=== PATIENT | female | born 1975 | race Caucasian/White ===

== ENCOUNTER 2016-09-16 20:49 | Emergency (ER) | payer OTHER ==
--- NOTE | ~2016-09-16 | CT4 ---
[facility] A Service of [facility] & [facility] RADIOLOGY TEXT RESULTS PATIENT: RENEE HAYES LOCATION: SED : 75 UNIT #: [id number] AGE: [address]: JAZZ STINSON SEX: F ORDER DR: [id number] [address] [address] [id number] E MR#: [id number] Acc #: [id number] NAME: RENEE HAYES. : 1975 SEX: F STUDY DATE/TIME: 09/16/2016 21:36 UNIT: SED ROOM: STUDY DESCRIPTION: CT Abd and Pelv Wo Cont Attending Physician: Jazz Stinson Aprn Ordering Physician: Physician Non-Staff Primary Care Physician: Daiana Tobias M.D. MEDICAL IMAGING REPORT This report is preliminary unless electronic signature is present. EXAM CT abdomen and pelvis, 09/16/2016. HISTORY Pain, left mid back, worse with movement, onset [address] abdomen and pelvis performed without administration of oral or intravascular contrast. Study limited in the absence of both oral and intravascular contrast. This CT exam was performed with one or more of the following radiation dose reduction techniques: automatic exposure control, adjustment of mA and/or kV according to patient size, and iterative reconstruction. COMPARISON 04/19/2015. FINDINGS Linear scarring or atelectasis at the left lung base. Inferior heart and pericardium unremarkable. No suspicious focal hepatic parenchymal abnormality. The liver is normal in size measuring about 16.2 cm in craniocaudal extent, previously 19.4 cm. Gallbladder, spleen, pancreas, adrenal glands unremarkable. Bilateral punctate intrarenal nonobstructing calculi more numerous on right than left. No right-sided hydronephrosis, hydroureter or ureteral calculus. On the left, there is minimal pyelocaliectasis. At the left pyeloureteral junction, there is a 2-3 mm calculus. No left perinephric or periureteral inflammatory change or fluid collection. No other left ureteral calculi. CT PELVIS: Urinary bladder unremarkable. Uterus unremarkable. 1.7 cm left ovarian cyst likely the dominant follicle for this menstrual cycle. No free fluid in pelvis. No pelvic or retroperitoneal adenopathy. Ikxdn-xd-aocorabk hiatal hernia unchanged. Surgical clips at level of the STS. [facility] A Service of [facility] & [facility] RADIOLOGY TEXT RESULTS PATIENT: RENEE HAYES LOCATION: [facility] : 75 UNIT #: [id number] AGE: [address]: JAZZ STINSON SEX: F ORDER DR: proximal stomach, unchanged. Small bowel, appendix, colon unremarkable. Unopacified vascular structures appear of normal caliber. Bony structures unremarkable. IMPRESSION 1. There is a 2-3 mm calculus at the left pyeloureteral junction resulting in mild left pyelocaliectasis. No other left ureteral calculi are seen. No perinephric or proximal periureteral inflammatory change or fluid collection. 2. Punctate nonobstructing intrarenal calculi bilaterally, more numerous on the right than left. 3. Compared to March 2015, there has been resolution of mild hepatic enlargement. Liver now measures 16.2 cm in craniocaudal extent, previously 19.4 cm. 4. Gallbladder, pancreas, appendix unremarkable. 5. 1.7 cm left ovarian cyst likely dominant follicle for this menstrual cycle. 6. No abnormal fluid collections. 7. Evidence of prior surgical intervention proximal stomach. Bvxzr-nm-tagsfxxe hiatal hernia. These findings are stable. See remainder of incidental findings in body of report above. Dictated by... Jaylen Callahan M.D. THIS IS AN ELECTRONICALLY VERIFIED REPORT Jaylen Callahan M.D. at 09/17/2016 2:17 PM Nino TD: 09/17/2016 12:05 JOB #: [id number] MEDICAL IMAGING REPORT Page 1 of 1
[2016-09-16 20:44] LABS: URINE SOURCE CLEAN CATCH
[2016-09-16 20:47] LABS: URINE APPEARANCE HAZY; URINE BILIRUBIN NEG (NEG); URINE BLOOD NEG (NEG); URINE COLOR DK YELLOW; URINE GLUCOSE NEG (NORM); URINE KETONE 1+ (NEG); URINE LEUKOCYTE ESTERASE TRACE (NEG); URINE NITRATE NEG (NEG); URINE PROTEIN 1+ (NEG); URINE SPECIFIC GRAVITY 1.025 (1.003-1.035); URINE UROBILINOGEN 0.2 MG/DL (NORM)
[~2016-09-16 20:49] MED LIST: ADVAIR 100-501 EACH IH; ALBUTEROL17 GM INH; ALLERGY MED; ANTI INFLAM; AUGMENTIN875 MG PO; B12; BACLOFEN10 MG PO; BACTRIM DS TABL1 TA1 PO; BACTRIM DS TABL1 TA2 PO; BACTRIM DS TABL1 TAB PO; BENTYL20 M1 PO; BENZONATATE PO; CALCIUM; CALCIUM + D 6001 TA1 PO; CALCIUM1 TAB.CHEW; CALCIUM500 MG PO; CARAFATE1 G PO; CHOLESTROL MED; CIPRO PO; CITRANATAL B-C1 EAC1 PO; DARVOCET-N 1001 TA1 PO; DARVOCET-N 1001 TA2 PO; DARVOCET-N 1001 TAB PO; DECADRON PO; DEPO-PROVER150 MG/M1; DEPO-PROVER150 MG/ML; DEPO-PROVER150 MG/ML INJ; DEPO-PROVERA INJ; DICLOFENAC PO; DICLOFENAC SODI50 MG PO; EC-NAPROSYN500 MG PO; FLEXERIL PO; FLEXERIL10 M1 PO; FLOMAX0.4 M1 DOB; FLOMAX0.4 M1 PO; FLOMAX0.4 MG PO; HYDROCODON-ACE1 EAC7 PO; IBUPROFEN PO; IRON1 TAB PO; LORTAB 10/500 T1 TAB PO; LORTAB 101 TAB 10/5 PO; LORTAB 5/500 TA1 TA1 PO; NABUMETONE PO; NAPROXEN PO; NEURONTIN PO; NEXIUM PO; NORCO 7.5-3251 EACH PO; NORFLEX100 M1 PO; PERCOCET5/325 PO; PHENERGAN DM1 ML PO; PHENERGAN PO; PHENERGAN SUPP25 M1 PR; PHENERGAN SUPP25 MG PR; PHENERGAN12.5 MG PO; PHENERGAN25 M1 PO; PHENERGAN25 MG PO; PRENATAL COMPLE1 TAB PO; PRILOSEC PO; PROAIR HFA8.5 GM IH; PROMETHAZINE HC25 MG PO; PROVENTIL INH0.5 ML; PYRIDIUM PO; QVAR7.3 GM INH; SIMVASTATIN10 MG PO; SINGULAIR PO; SKELAXIN PO; SYMBICORT INH; TRAMADOL HCL50 M2 PO; TYLOX 5/500 CAP1 CAP PO; ULTRAM PO; VIBRAMYCIN100 M1 PO; VICODIN 5/1 TAB 5/50 PO; VICODIN 5/500 T1 TAB PO; VICODIN ES 7.51 EACH PO; VIT B-12 PO; VIT B12 PO; VOLTAREN50 MG PO; VOLTAREN75 MG PO; ZANAFLEX4 M1 PO; ZANTAC PO; ZITHROMAX PO; ZITHROMAX1 G/PKT PO; ZOCOR5 MG PO; ZOFRAN; ZOFRAN ODT4 MG PO; ZOFRAN PO; ZYRTEC PO; ZYRTEC10 M2 PO; [UNRECOGNIZED DRUG - REMARK]
[2016-09-16 20:53] LABS: MICRO INDICATED? YES
[2016-09-16 21:01] LABS: CULTURE INDICATED? YES; URINE BACTERIA 1+ (NEG); URINE MUCUS PRESENT; URINE SQUAMOUS EPITHELIAL CELL MODERATE /[HPF]
[2016-09-16 23:24] LABS: BASOPHIL# 0.1 X10e3 (0-0.3); BASOPHIL% 0.9 % (0-2.5); EOSINOPHIL# 0.1 X10e3 (0-0.7); EOSINOPHIL% 1.4 % (0.0-7.0); HEMATOCRIT 43.7 % (35.0-45.0); HEMOGLOBIN 14.3 gm/dL (12.0-16.0); LYMPHOCYTE% 38.9 % (17.0-45.0); MEAN CORPUSCULAR HEMOGLOBIN 29.5 PG (28-34); MEAN CORPUSCULAR HGB CONC 32.7 g/dL (30-36); MEAN PLATELET VOLUME 6.7 FL (6.5-11.5); MONOCYTE# 0.7 X10e3 (0-1.0); MONOCYTE% 6.5 % (3.0-12.0); NEUTROPHIL# 5.4 X10e3 (1.5-7.1); NEUTROPHIL% 52.3 % (40-75); PLATELET COUNT 276 X10e3 (140-420); RED BLOOD COUNT 4.85 X10e (3.90-5.30); RED CELL DISTRIBUTION WIDTH 14.1 % (11.0-15.5); WHITE BLOOD COUNT 10.3 X10e3 (4.0-10.5)
[2016-09-16 23:28] LABS: DIFF IND NO
[2016-09-16 23:38] LABS: ALBUMIN SERUM 4.4 g/dL (3.5-5.0); BILIRUBIN,TOTAL 0.6 mg/dL (0.2-2.0); BUN/CREATININE RATIO 15.45; CALCIUM SERUM 9.4 mg/dL (8.4-10.2); CREATININE SERUM 1.1 mg/dL (0.6-1.4); GLOM FILT RATE Estimated 58.2 mL/min (>60); POTASSIUM 3.5 mmol/L (3.5-5.1)
[2016-09-22] MEDS ORDERED: NORCO1 TAB 10/3 DOB (12:29)
[2016-09-22] MEDS ORDERED: ZOFRAN PO (12:29)
[2016-12-29] MEDS ORDERED: PENICILLIN V P500 MG PO (11:38)
[2017-02-19] MEDS ORDERED: REGLAN5 MG PO (08:54)
[2017-02-19] MEDS ORDERED: MONTELUKAST SOD10 MG PO (11:00)
[2017-02-19] MEDS ORDERED: MULTI VITAMIN1 EACH PO (11:00)
[2017-02-19] MEDS ORDERED: HYDROCODON-ACE1 EAC7 PO (11:01)
[2017-02-19] MEDS ORDERED: CALCIUM 600 +1 EAC1 PO (11:53)
[2017-02-19] MEDS ORDERED: ALBUTEROL MININEB NEB (11:54)
[2017-02-19] MEDS ORDERED: ZYRTEC PO (11:54)
[2017-02-19] MEDS ORDERED: FERROUS GLUCON PO (12:30)
[2017-02-19] MEDS ORDERED: NEXIUM PO (12:48)
[2017-02-19] MEDS ORDERED: PROAIR HFA8.5 GM INH (12:49)
[2017-02-19] MEDS ORDERED: SIMVASTATIN40 MG PO (14:19)
[2017-02-19] MEDS ORDERED: GABAPENTIN300 M2 PO (14:20)
[2017-02-19] MEDS ORDERED: CARAFATE1 GM PO (14:20)
== END 2016-09-17 00:27 | disposition home or self-care (01) ==
LOC: SED 20:49
PROVIDERS: Nurse Practitioner Family
DX: N20.1 Calculus of ureter (principal); Z88.5 Allergy status to narcotic agent; Z79.899 Other long term (current) drug therapy
CPT/HCPCS: 36415; 74176; 80053; 81003; 85025; 87086; 96372; 99284; J1885

== ENCOUNTER 2016-09-22 13:04 | Emergency (ER) | payer OTHER ==
--- NOTE | ~2016-09-22 | CR7 ---
[facility] A Service of [facility] & [facility] RADIOLOGY TEXT RESULTS PATIENT: RENEE HAYES LOCATION: SED : 75 UNIT #: [id number] AGE: [address]: Dov Basilio MD SEX: F ORDER DR: [id number] [place] [id number] E MR#: [id number] Acc #: [id number] NAME: RENEE HAYES. : 1975 SEX: F STUDY DATE/TIME: 09/22/2016 12:54 UNIT: SED ROOM: STUDY DESCRIPTION: CR Abdomen Single AP View Attending Physician: Dov Basilio M.D. Ordering Physician: Dov Basilio M.D. Primary Care Physician: Daiana Tobias M.D. MEDICAL IMAGING REPORT This report is preliminary unless electronic signature is present. EXAM Portable abdomen, 09/22/2016 HISTORY Flank pain for 3 days. FINDINGS Moderate amount of stool throughout the colon. No bowel dilatation or displacement. Bowel contents overlie and partly obscure both kidneys. No definite urinary calculi, although urinary stones could be obscured by the overlying bowel contents. Probable opaque bowel content overlying the left kidney. Incidental tiny right pelvic phlebolith. Surgical clips in the medial left upper quadrant. IMPRESSION No acute findings. Moderate amount of stool in nondistended colon. Dictated by... Jeanmarie Bland M.D. THIS IS AN ELECTRONICALLY VERIFIED REPORT Jeanmarie Bland M.D. at 09/23/2016 3:00 PM FORD/adriana TD: 09/23/2016 04:15 JOB #: [id number] MEDICAL IMAGING REPORT Page 1 of 1
[2016-09-22 12:52] LABS: URINE SOURCE CLEAN CATCH
[2016-09-22 12:54] LABS: URINE APPEARANCE SL CLOUDY; URINE BILIRUBIN POS (NEG); URINE BLOOD 3+ (NEG); URINE COLOR YELLOW; URINE GLUCOSE NEG (NORM); URINE KETONE NEG (NEG); URINE LEUKOCYTE ESTERASE NEG (NEG); URINE NITRATE NEG (NEG); URINE PH 6.5 (5-8); URINE PROTEIN TRACE (NEG)
[2016-09-22 12:55] LABS: MICRO INDICATED? YES
[~2016-09-22 13:04] MED LIST changes: +NORCO1 TAB 10/3 DOB
[2016-09-22 13:18] LABS: CULTURE INDICATED? NO; URINE BACTERIA NEG (NEG); URINE WBC 0-2 /[HPF] (0-5)
[2016-12-29] MEDS ORDERED: PENICILLIN V P500 MG PO (11:38)
[2017-02-19] MEDS ORDERED: REGLAN5 MG PO (08:54)
[2017-02-19] MEDS ORDERED: MULTI VITAMIN1 EACH PO (11:00)
[2017-02-19] MEDS ORDERED: MONTELUKAST SOD10 MG PO (11:00)
[2017-02-19] MEDS ORDERED: HYDROCODON-ACE1 EAC7 PO (11:01)
[2017-02-19] MEDS ORDERED: CALCIUM 600 +1 EAC1 PO (11:53)
[2017-02-19] MEDS ORDERED: ZYRTEC PO (11:54)
[2017-02-19] MEDS ORDERED: ALBUTEROL MININEB NEB (11:54)
[2017-02-19] MEDS ORDERED: FERROUS GLUCON PO (12:30)
[2017-02-19] MEDS ORDERED: NEXIUM PO (12:48)
[2017-02-19] MEDS ORDERED: PROAIR HFA8.5 GM INH (12:49)
[2017-02-19] MEDS ORDERED: SIMVASTATIN40 MG PO (14:19)
[2017-02-19] MEDS ORDERED: GABAPENTIN300 M2 PO (14:20)
[2017-02-19] MEDS ORDERED: CARAFATE1 GM PO (14:20)
== END 2016-09-22 14:56 | disposition home or self-care (01) ==
LOC: SED 13:04
PROVIDERS: Emergency Medicine
DX: N20.1 Calculus of ureter (principal); K59.00 Constipation, unspecified; K21.9 Gastro-esophageal reflux disease without esophagitis; J45.909 Unspecified asthma, uncomplicated; Z79.899 Other long term (current) drug therapy; Z88.5 Allergy status to narcotic agent
CPT/HCPCS: 74000; 81003; 96372; 99284; J1170; J2550

== ENCOUNTER → 2016-10-04 | Day surgery (SDC) | payer OTHER ==
[~2016-10-04] MED LIST changes: +ALBUTEROL MININEB NEB; +CALCIUM 600 +1 EAC1 PO; +CARAFATE1 GM PO; +FERROUS GLUCON PO; +GABAPENTIN300 M2 PO; +MONTELUKAST SOD10 MG PO; +MULTI VITAMIN1 EACH PO; +PENICILLIN V P500 MG PO; +PROAIR HFA8.5 GM INH; +REGLAN5 MG PO; +SIMVASTATIN40 MG PO
--- NOTE | ~2016-10-04 | OR ---
Unit #: [id number] #: [id number] Patient: RENEE HAYES [id number] [address] [place], [place] [address] [id number] O MR#: [id number] NAME: RENEE HAYES. ROOM: Date of Procedure: 10/04/2016 Admission Date: 10/04/2016 Surgeon: Eron Becerril M.D. : 1975 Attending Physician: Eron Becerril M.D. Referring Physician: Eron Becerril M.D. Primary Care Physician: Daiana Tobias M.D. OPERATIVE REPORT PREOPERATIVE DIAGNOSES Small left ureteral stone and bilateral flank pain. POSTOPERATIVE DIAGNOSES Normal cystoscopy and retrogrades, no stone or hydronephrosis seen. PROCEDURES PERFORMED 1. Cystourethroscopy. 2. Bilateral retrograde ureteropyelograms. 3. Interpretation of retrogrades. ANESTHESIA General with local supplementation. INDICATIONS FOR PROCEDURE This patient with a prior history of stone disease, also had an incidental benign bladder lesion versus papillary lesion of low malignant potential, removed from the bladder in 12/2014. She presented with a several week history of intermittent left back pain and was noted to have a 2.6 mm stone at the left ureteropelvic junction associated with hydronephrosis. She has perhaps 1 mm parenchymal calcification versus stone in the right kidney. She has complained of continued pain on expectant management and therefore was admitted today for left ureteroscopy, laser lithotripsy, and stent placement. In the holding area, she requested treatment on the right side as her pain has been greater on the right lately. A difficulty in discussing her situation was moderated with counseling from the branch chief and after reviewing her CT scan and thoroughly reviewing my assessment, we agreed to modify the procedure to cystoscopy, bilateral retrogrades, and other indications including any ureteroscopy indicated right or left. DESCRIPTION OF PROCEDURE The patient was given preoperative antibiotics and satisfactory general anesthesia. The patient was repositioned in dorsal lithotomy and the genitalia were prepped and draped. A time-out was performed. She had been given preoperative antibiotics. A 21-Anguillan rigid cystoscope was introduced with a 20 degree lens and video noting a normal urethra and essentially normal bladder. Close examination showed scarring at the left ureteral orifice presumably from the previous lesion. The entire mucosa of the bladder was examined with no suspicious findings. There were no stones or architectural abnormalities. Unit #: [id number] #: [id number] Patient: RENEE HAYES An 8 mm cone tip catheter was placed in the left ureteral orifice and a meticulous multistaged left retrograde performed showing repeatedly a normal single system with minimal hang up at the pelvic vessels, but no dilation, no hydronephrosis, delicate calyces, and no filling defects and prompt emptying. Particular attention was paid to the upper ureter and UPJ area to be sure there was not any occult fragment in that location. A right retrograde was similarly performed also showing delicate single system with no hydronephrosis or stone and prompt complete emptying. Certainty of findings, the bladder was drained. The cystoscope removed and Uro-jet was applied. Dictated by... Aarti Ramirez/barbara TD: 10/05/2016 03:15 JOB #: [id number] CC: Daiana Tobias M.D. OPERATIVE REPORT Page 1 of 1 X Eron Becerril MD X PROCEDURE OPERATIVE NOTE
[2016-10-04 09:26] LABS: BASOPHIL% 0.4 % (0-2.5); EOSINOPHIL# 0.1 X10e3 (0-0.7); EOSINOPHIL% 1.4 % (0.0-7.0); HEMATOCRIT 40.1 % (35.0-45.0); HEMOGLOBIN 13.3 gm/dL (12.0-16.0); LYMPHOCYTE# 2.6 X10e3 (1.0-3.5); LYMPHOCYTE% 32.5 % (17.0-45.0); MEAN CELL VOLUME 89.1 FL (83-96); MEAN CORPUSCULAR HEMOGLOBIN 29.6 PG (28-34); MEAN CORPUSCULAR HGB CONC 33.3 g/dL (30-36); MEAN PLATELET VOLUME 6.8 FL (6.5-11.5); MONOCYTE# 0.5 X10e3 (0-1.0); NEUTROPHIL# 4.8 X10e3 (1.5-7.1); NEUTROPHIL% 59.7 % (40-75); PLATELET COUNT 257 X10e3 (140-420); RED CELL DISTRIBUTION WIDTH 13.8 % (11.0-15.5)
[2016-10-04 09:29] LABS: DIFF IND NO
== END | disposition home or self-care (01) ==
LOC: CSUR 08:28
PROVIDERS: Urology
DX: Z87.442 Personal history of urinary calculi (principal); E78.5 Hyperlipidemia, unspecified; J44.9 Chronic obstructive pulmonary disease, unspecified; K21.9 Gastro-esophageal reflux disease without esophagitis; F41.9 Anxiety disorder, unspecified; Z88.5 Allergy status to narcotic agent; Z79.899 Other long term (current) drug therapy; Z98.3 Post therapeutic collapse of lung status; Z98.890 Other specified postprocedural states
CPT/HCPCS: 84703; 85025; J0330; J0690; J1100; J2250; J2405; J3010

== ENCOUNTER 2016-12-28 16:47 | Emergency (ER) | payer OTHER ==
[~2016-12-28 16:47] MED LIST changes: -ALBUTEROL MININEB NEB; -CALCIUM 600 +1 EAC1 PO; -CARAFATE1 GM PO; -FERROUS GLUCON PO; -GABAPENTIN300 M2 PO; -MONTELUKAST SOD10 MG PO; -MULTI VITAMIN1 EACH PO; -PENICILLIN V P500 MG PO; -PROAIR HFA8.5 GM INH; -REGLAN5 MG PO; -SIMVASTATIN40 MG PO
[2016-12-29] MEDS ORDERED: PENICILLIN V P500 MG PO (11:38)
[2017-02-19] MEDS ORDERED: REGLAN5 MG PO (08:54)
[2017-02-19] MEDS ORDERED: MONTELUKAST SOD10 MG PO (11:00)
[2017-02-19] MEDS ORDERED: MULTI VITAMIN1 EACH PO (11:00)
[2017-02-19] MEDS ORDERED: HYDROCODON-ACE1 EAC7 PO (11:01)
[2017-02-19] MEDS ORDERED: CALCIUM 600 +1 EAC1 PO (11:53)
[2017-02-19] MEDS ORDERED: ALBUTEROL MININEB NEB (11:54)
[2017-02-19] MEDS ORDERED: ZYRTEC PO (11:54)
[2017-02-19] MEDS ORDERED: FERROUS GLUCON PO (12:30)
[2017-02-19] MEDS ORDERED: NEXIUM PO (12:48)
[2017-02-19] MEDS ORDERED: PROAIR HFA8.5 GM INH (12:49)
[2017-02-19] MEDS ORDERED: SIMVASTATIN40 MG PO (14:19)
[2017-02-19] MEDS ORDERED: GABAPENTIN300 M2 PO (14:20)
[2017-02-19] MEDS ORDERED: CARAFATE1 GM PO (14:20)
== END 2016-12-28 19:52 | disposition home or self-care (01) ==
LOC: SED 16:47
DX: J02.9 Acute pharyngitis, unspecified (principal); J44.9 Chronic obstructive pulmonary disease, unspecified; Z79.899 Other long term (current) drug therapy; Z88.5 Allergy status to narcotic agent
CPT/HCPCS: 86308; 87651; 96372; 99283; J1100

== ENCOUNTER → 2017-02-19 | Day surgery (SDC) | payer OTHER ==
[~2017-02-19] MED LIST changes: +ALBUTEROL MININEB NEB; +CALCIUM 600 +1 EAC1 PO; +CARAFATE1 GM PO; +FERROUS GLUCON PO; +GABAPENTIN300 M2 PO; +MONTELUKAST SOD10 MG PO; +MULTI VITAMIN1 EACH PO; +PENICILLIN V P500 MG PO; +PROAIR HFA8.5 GM INH; +REGLAN5 MG PO; +SIMVASTATIN40 MG PO
--- NOTE | ~2017-02-19 | OR ---
Unit #: [id number] #: [id number] Patient: RENEE HAYES [id number] [address] [address] [id number] O MR#: [id number] NAME: RENEE HAYES. ROOM: Date of Procedure: 02/19/2017 Admission Date: 02/19/2017 Surgeon: Cordell Powers M.D. : 1975 Attending Physician: Cordell Powers M.D. Primary Care Physician: Daiana Tobias M.D. OPERATIVE REPORT PROCEDURE PERFORMED Esophagogastroduodenoscopy with biopsies. INDICATIONS FOR PROCEDURE The patient with a history of duodenal ulcer now with recurrent vomiting despite PPI therapy, undergoing evaluation with upper endoscopy. MEDICATIONS Monitored anesthesia. POSTOPERATIVE FINDINGS 1. Small hiatal hernia. 2. Retained food in the stomach, possible gastroparesis. 3. Mild gastritis diffusely, biopsies taken. 4. Normal duodenum and distal duodenum. No ulcers seen as previously noted. PLAN Continue with PPI therapy. Diet discussed. We will get a gastric emptying scan. DESCRIPTION OF PROCEDURE The patient was explained of the procedure, risks, and benefits along with risks and benefits of anesthesia. She was brought to the endoscopy room. Propofol anesthesia was given. Bite block was placed. The scope was passed down the mouth into the esophagus, stomach, duodenum, and distal duodenum. Findings as described. Biopsies taken. Gently, I pulled the scope out of the patient's mouth. She tolerated it well. Dictated by... Aarti Mendoza/barbara TD: 02/20/2017 01:40 JOB #: [id number] CC: Viviane Russ M.D. Unit #: [id number] #: [id number] Patient: RENEE HAYES OPERATIVE REPORT Page 1 of 1 X Cordell Powers MD X PROCEDURE OPERATIVE NOTE
== END | disposition home or self-care (01) ==
LOC: COPS 06:19
DX: K29.50 Unspecified chronic gastritis without bleeding (principal); K44.9 Diaphragmatic hernia without obstruction or gangrene; T18.2XXA Foreign body in stomach, initial encounter; Z87.19 Personal history of other diseases of the digestive system; K21.9 Gastro-esophageal reflux disease without esophagitis; M54.30 Sciatica, unspecified side; M17.9 Osteoarthritis of knee, unspecified; G89.29 Other chronic pain; Z79.899 Other long term (current) drug therapy; M54.9 Dorsalgia, unspecified; Z98.890 Other specified postprocedural states; Z87.442 Personal history of urinary calculi; Z88.6 Allergy status to analgesic agent; Z88.5 Allergy status to narcotic agent
CPT/HCPCS: 84703; 88305; 88312; J2250

== ENCOUNTER → 2017-02-25 | Outpatient (CLI) | payer OTHER ==
--- NOTE | ~2017-02-25 | NM19 ---
[facility] A Service of [facility] & [facility] RADIOLOGY TEXT RESULTS PATIENT: RENEE HAYES LOCATION: [facility] : 75 UNIT #: [id number] AGE: [address]: Cordell Powers MD SEX: F ORDER DR: [id number] [facility] [address] [facility]. [place], [place] [address] [id number] O MR#: [id number] Acc #: [id number] NAME: RENEE HAYES : 1975 SEX: F STUDY DATE/TIME: 02/25/2017 10:24 UNIT: [facility] ROOM: STUDY DESCRIPTION: [place] Gastric Emptying Study Attending Physician: Cordell Powers M.D. Referring Physician: Cordell Powers M.D. Ordering Physician: Cordell Powers M.D. Primary Care Physician: Daiana Tobias M.D. MEDICAL IMAGING REPORT This report is preliminary unless electronic signature is present EXAM Gastric emptying scan 02/25/2017 HISTORY Persistent vomiting and gastroesophageal reflux and nausea since 2004, worsening. FINDINGS The patient ingested 514 microcuries of technetium 99m tagged sulfur colloid in oatmeal with water. Images of the upper abdomen were obtained for 2 hours. After 1 hour the stomach was 87% empty after 2 hours the stomach was 94% empty. Normal ranges greater than 60% empty after 2 hours of imaging and greater than 90% empty after 4 hours of imaging. IMPRESSION Normal gastric emptying scan. Dictated by... Venancio Bertrand M.D. THIS IS AN ELECTRONICALLY VERIFIED REPORT Venancio Bertrand M.D. at 02/26/2017 7:47 AM KRT/to TD: 02/25/2017 18:11 JOB #: [id number] MEDICAL IMAGING REPORT Page 1 of 1 COPY
== END | disposition home or self-care (01) ==
LOC: CNUC 09:20
DX: R11.10 Vomiting, unspecified (principal)
CPT/HCPCS: 78264; A9541